=== PATIENT | female | born 1985 | race Caucasian/White ===

== ENCOUNTER 2020-12-20 14:14 | Emergency (ER) | payer BC ==
[2020-12-20] MEDS ORDERED: Ondansetron 4 MG/2 ML SDV IVPUSH ONE (15:06)
[2020-12-20] MEDS ORDERED: Morphine 4 MG/ML VIAL IVPUSH ONE (15:06)
[2020-12-20] MEDS ORDERED: Sodium Chloride 0.9% 1,000 ML IV ONE (15:06)
[2020-12-20] MEDS ORDERED: Ketorolac 30 MG/ML SDV IVPUSH ONE (15:06)
--- NOTE | 2020-12-20 15:15 | EDM.PDOC ---
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, lower 6" retained so that ostomy would not be needed, has chronic abd pain for which she takes hc/apap 7.5/[address] abd/pelvis here 08/30 that showed no obstruction had abd pain 10/28 and went to [facility], told that the colon "was twisted" has had similar pain x 3d now as she did 10/28, generalized cramping pain not controlled with hc/apap, usual gets relief of chronic pain for several hours but that was not the case when she took it at 8a 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, 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, worked every day this week altho left today (Wed) at 1p to go to clinic and then was sent here has been talking with [facility] physicians who request CT has promethazine at home for N, other nausea meds do not work, did not take oral promethazine today as it makes her sedated add only a waffle this AM last BM 2d ago PCP: Gia Rodriguez Mid-abdominal Pain Score (Numeric/FACES): 10 - Related Data Allergies Allergy/AdvReac Type Severity Reaction Status Date / Time latex Allergy Rash Verified 12/20/20 14:23 Home Meds: Home Meds Amitriptyline [Elavil] 25 mg PO BEDTIME 12/20/20 [History] Cetirizine [ZyrTEC] 20 mg PO BEDTIME 12/20/20 [History] DULoxetine [Cymbalta] 60 mg PO DAILY 12/20/20 [History] Hydrocodone/Acetaminophen [Hydrocodon-Acetaminoph 7.5-325] 1 tab BID 12/20/20 [History] Levonorgestrel/Ethin.estradiol [Falmina-28 Tablet] 1 each PO BEDTIME 12/20/20 [History] Promethazine [Phenergan] 25 mg PO Q6H PRN 12/20/20 [History] Past Medical History Gastrointestinal History: Reports: Bowel Obstruction Other Gastrointestinal History: hx abd strictures Genitourinary History: Reports: Acute Renal Failure Other [employer] E[employer]OMIST History: G0 Musculoskeletal History: Reports: Back Pain, Chronic, Fracture Other Musculoskeletal History: hx L 5th digit Neurological History: Reports: Concussion Psychiatric History: Reports: Anxiety, Panic Attack Hematologic History: Reports: Anemia, Blood Transfusion(s), Iron Deficiency Dermatologic History: Reports: Eczema - Infectious Disease History Infectious Disease History: Reports: Chicken Pox, Other (See Below) Other Infectious Disease History: hx Ecoli causing hemolytic uremic syndrome - Past Surgical History GI Surgical History: Reports: Appendectomy, Cholecystectomy, Colon, Colonoscopy, EGD, Lysis of Adhesions Other GI Surgeries/Procedures: colon resection. has neurostimulator implanted in back to help with abd pain Neurological Surgical History: Reports: Other (See Below) Other Neurological Surgeries/Procedures: has neurostimulator in back to help with abd pain Musculoskeletal Surgical History: Reports: None Social & Family History - Family History Family Medical History: No Pertinent Family History - Tobacco Use Tobacco Use Status *Q: Never Tobacco User - Caffeine Use Caffeine Use: Reports: Coffee - Recreational Drug Use Recreational Drug Use: No ED ROS GENERAL - Review of Systems Review Of Systems: See Below Constitutional: Reports: No Symptoms HEENT: Reports: No Symptoms Respiratory: Reports: No Symptoms Cardiovascular: Reports: No Symptoms Endocrine: Reports: No Symptoms GI/Abdominal: Reports: Abdominal Pain, Nausea : Reports: No Symptoms Musculoskeletal: Reports: No Symptoms Skin: Reports: No Symptoms Neurological: Reports: No Symptoms Psychiatric: Reports: No Symptoms Hematologic/Lymphatic: Reports: No Symptoms Immunologic: Reports: No Symptoms ED EXAM, GI/ABD - Physical Exam Exam: See Below Exam Limited By: No Limitations General Appearance: Alert, WD/WN, Moderate Distress Ears: Hearing Grossly Normal Nose: Normal Inspection Throat/Mouth: Normal Voice, No Airway Compromise Head: Atraumatic, Normocephalic Neck: Normal Inspection, Supple, Non-Tender, Full Range of Motion Respiratory/Chest: No Respiratory Distress, Lungs Clear, Normal Breath Sounds, No Accessory Muscle Use Cardiovascular: No Edema, No Gallop, No Murmur, Tachycardia, Other (inc'd HR, regular, quiet precordium) GI/Abdominal Exam: Other (no distention, BS present altho dec'd, 1-2+ tender throughout) Back Exam: Normal Inspection, Full Range of Motion. No: CVA Tenderness (R), CVA Tenderness (L) Extremities: Normal Range of Motion, Non-Tender, No Pedal Edema Neurological: Alert, Oriented, CN II-XII Intact, Normal Cognition, No Motor/Sensory Deficits Psychiatric: Normal Affect, Normal Mood Skin Exam: Warm, Dry, Intact, Normal Color, Other (dec'd turgor UEs without tenting) Lymphatic: No Adenopathy Course - Vital Signs Last Recorded V/S: Last Vital Signs Temp 36.7 C 12/20/20 14:19 Pulse 103 H 12/20/20 14:19 Resp 18 12/20/20 14:19 BP 123/99 H 12/20/20 14:19 Pulse Ox 97 12/20/20 14:19 - Orders/Labs/Meds Orders: Active Orders 24 hr Category Date Time Status UA W/MICROSCOPIC [URIN] Stat Lab 12/20/20 15:06 Ordered Labs: Laboratory Tests 12/20/20 12/20/20 12/20/20 Range/Units 15:25 15:25 15:25 WBC 6.9 (3.0-10.3) x10-3/uL RBC 4.46 (3.60-5.20) x10(6)uL Hgb 13.0 (11.4-15.5) g/dL Hct 38.5 (34.2-48.2) % MCV 86.3 (76.7-100.5) fL MCH 29.1 (23.9-33.9) pg MCHC 33.7 (31.9-34.8) g/dL RDW 13.8 (12.3-16.5) % Plt Count 216 (151-488) x10(3)uL MPV 8.6 (7.1-12.4) fL Neut % (Auto) 65.7 (30.8-76.2) % Lymph % (Auto) 25.9 (18.4-52.1) % [place] % (Auto) 7.6 (4.4-15.7) % Eos % (Auto) 0.3 L (0.6-8.1) % Baso % (Auto) 0.5 (0.2-1.5) % Neut # (Auto) 4.5 (1.5-6.3) x10-3/uL Lymph # (Auto) 1.8 (1.0-4.4) x10-3/uL [place] # (Auto) 0.5 (0.3-1.0) x10-3/uL Eos # (Auto) 0.0 (0.0-0.8) x10-3/uL Baso # (Auto) 0.0 (0.0-0.1) x10-3/uL Sodium 140 (135-145) mmol/L Potassium 4.0 (3.5-5.3) mmol/L Chloride 101 (100-110) mmol/L Carbon Dioxide 28 (21-32) mmol/L BUN 8 (7-18) mg/dL Creatinine 0.7 (0.55-1.02) mg/dL Est Cr Clr Drug Dosing 87.87 mL/min Estimated GFR (MDRD) > 60 (>60) BUN/Creatinine Ratio 11.4 (9-20) Glucose 102 (80-116) mg/dL Lactic Acid (0.4-2.0) mmol/L Calcium 8.9 (8.6-10.2) mg/dL Total Bilirubin 0.5 (0.1-1.3) mg/dL AST 16 (5-25) IU/L ALT 16 (12-36) U/L Alkaline Phosphatase 62 (56-112) IU/L C-Reactive Protein < 0.2 L (0.5-0.9) mg/dL Total Protein 7.5 (6.0-8.0) g/dL Albumin 4.0 (3.5-5.2) g/dL Globulin 3.5 g/dL Albumin/Globulin Ratio 1.1 Lipase 104 (73-393) U/L 12/20/20 Range/Units 15:25 WBC (3.0-10.3) x10-3/uL RBC (3.60-5.20) x10(6)uL Hgb (11.4-15.5) g/dL Hct (34.2-48.2) % MCV (76.7-100.5) fL MCH (23.9-33.9) pg MCHC (31.9-34.8) g/dL RDW (12.3-16.5) % Plt Count (151-488) x10(3)uL MPV (7.1-12.4) fL Neut % (Auto) (30.8-76.2) % Lymph % (Auto) (18.4-52.1) % [place] % (Auto) (4.4-15.7) % Eos % (Auto) (0.6-8.1) % Baso % (Auto) (0.2-1.5) % Neut # (Auto) (1.5-6.3) x10-3/uL Lymph # (Auto) (1.0-4.4) x10-3/uL [place] # (Auto) (0.3-1.0) x10-3/uL Eos # (Auto) (0.0-0.8) x10-3/uL Baso # (Auto) (0.0-0.1) x10-3/uL Sodium (135-145) mmol/L Potassium (3.5-5.3) mmol/L Chloride (100-110) mmol/L Carbon Dioxide (21-32) mmol/L BUN (7-18) mg/dL Creatinine (0.55-1.02) mg/dL Est Cr Clr Drug Dosing mL/min Estimated GFR (MDRD) (>60) BUN/Creatinine Ratio (9-20) Glucose (80-116) mg/dL Lactic Acid 0.6 (0.4-2.0) mmol/L Calcium (8.6-10.2) mg/dL Total Bilirubin (0.1-1.3) mg/dL AST (5-25) IU/L ALT (12-36) U/L Alkaline Phosphatase (56-112) IU/L C-Reactive Protein (0.5-0.9) mg/dL Total Protein (6.0-8.0) g/dL Albumin (3.5-5.2) g/dL Globulin g/dL Albumin/Globulin Ratio Lipase (73-393) U/L Meds: Medications Discontinued Medications Generic Name Dose Route Start Last Admin Trade Name Freq PRN Reason Stop Dose Admin Sodium Chloride 1,000 mls @ 999 mls/hr 12/20/20 15:06 12/20/20 15:32 Normal Saline IV 12/20/20 16:06 999 mls/hr .BOLUS ONE Administration Iopamidol 75 ml 12/20/20 15:39 12/20/20 16:01 Iopamidol 755 Mg/Ml 75 Ml Bottle IV 12/20/20 15:40 66 ml ASDIRECTED ONE Administration Ketorolac Tromethamine 30 mg 12/20/20 15:06 12/20/20 15:34 Ketorolac 30 Mg/Ml Sdv IVPUSH 12/20/20 15:07 30 mg ONETIME ONE Administration Morphine Sulfate 4 mg 12/20/20 15:06 12/20/20 15:35 Morphine 4 Mg/Ml Vial IVPUSH 12/20/20 15:07 4 mg ONETIME ONE Administration Ondansetron HCl 4 mg 12/20/20 15:06 12/20/20 15:32 Ondansetron 4 Mg/2 Ml Sdv IVPUSH 12/20/20 15:07 4 mg ONETIME ONE Administration Sodium Biphosphate/Sodium Phosphate 133 ml 12/20/20 16:33 12/20/20 17:29 Sodium Phosphate,Monobasic/Sodium Phosphate,Dibasic Enema 133 Ml Bottle RECTAL 12/20/20 16:34 133 ml ONETIME ONE Administration - Re-Assessments/Exams Free Text/Narrative Re-Assessment/Exam: 12/20/20 17:55 CT abd/pelvis with IV contrast with stool distending sigmoid colon and extending across anastamosis per Dr Prakash, no change c/w 08/30, no evidence of obstruction labs are neg CT images pushed to [facility] no immediate results after a Fleet's enema, which pt says can take a little while for her to be effective Departure - Departure Time of Disposition: 17:50 Disposition: Home, Self-Care 01 Condition: Good Clinical Impression: Constipation, Spasm of bowel, Colonic motility disorder - Discharge Information *PRESCRIPTION DRUG MONITORING PROGRAM REVIEWED*: Not Applicable *COPY OF PRESCRIPTION DRUG MONITORING REPORT IN PATIENT DEEPIKA: Not Applicable Instructions: Chronic Constipation, Diet for Irritable Bowel Syndrome Forms: ED Department Discharge Additional Instructions: Give yourself another enema at home this evening, if necessary. Drink a 10-ounce bottle of magnesium citrate in the morning, if necessary. Discuss your ongoing bowel management regimen with your PCP and [facility] physicians. For pain and cramping, take ibuprofen 200 mg 4 tabs 3 times a day as needed. Sepsis Event Note (ED) - Evaluation Sepsis Screening Result: No Definite Risk - Focused Exam Vital Signs: Vital Signs Temp Pulse Resp BP Pulse Ox 12/20/20 14:19 36.7 C 103 H 18 123/99 H 97 - My Orders Last 24 Hours: My Active Orders 12/20/20 15:06 UA W/MICROSCOPIC [URIN] Stat - Assessment/Plan Last 24 Hours: My Active Orders 12/20/20 15:06 UA W/MICROSCOPIC [URIN] Stat
[2020-12-20] MEDS ORDERED: Morphine 4 MG/ML VIAL ONE (15:32)
[2020-12-20] MEDS ORDERED: Iopamidol 755 Mg/ML 75 ML Bottle IV ONE (15:39)
[2020-12-20] MEDS ORDERED: Sodium Phosphate,Monobasic/Sodium Phosphate,Dibasic Enema 133 ML Bottle RECTAL ONE (16:33)
--- NOTE | 2020-12-20 16:51 | CT ---
INDICATION: Abdominal pain, question small bowel obstruction, resection of all colon except last [address] ABDOMEN AND PELVIS WITH CONTRAST: Spiral 3.75 mm axial sections were obtained through the abdomen and pelvis with 66 mL Isovue 370 at 1.4 mL per second 12/20/20 and compared with 09/05/20. Total exam DLP was 334.26 mGy-cm. The lower lung sheldon and pleural spaces visualized appeared normal. The heart appeared normal in size. No pericardial effusion was seen. The liver appeared normal. The gallbladder is absent with clips at the cystic duct compatible with cholecystectomy history. The adrenal glands, kidneys, spleen, and pancreas were unremarkable. No retroperitoneal mass was seen. Evidence of subtotal colectomy is noted with anastomosis at the level of the sigmoid colon or rectosigmoid. There is stool noted at the site of ileosigmoid anastomosis. Compared with the previous examination, the appearance if very similar with some air-fluid levels in minimally dilated small bowel, but no definitely mechanical obstructive process identified. There is gas extending from the area of the ileocolonic anastomosis into the rectum. The urinary bladder was unremarkable. Follicles are noted in the ovaries. No additional organomegaly, mass lesions, or free fluid collections were identified in the abdomen or pelvis. IMPRESSION: 1. Subtotal colectomy with anastomosis in the right lower quadrant which appears to be functioning, there being stool across that anastomosis and gas in the remaining more distal sigmoid colon and rectum. The appearance is similar to 09/05/20. 2. Post cholecystectomy. 3. Neural stimulator remains in place. 4. Urinary bladder remains somewhat distended in appearance of questionable significance. Report was called to Dr. Lambert at 1624 hours, 12/20/20. [facility]
== END 2020-12-20 18:01 | disposition home or self-care (01) ==
LOC: FB.ED 14:14
DX: K58.1 Irritable bowel syndrome with constipation (principal); K63.89 Other specified diseases of intestine; Z91.040 Latex allergy status; Z79.899 Other long term (current) drug therapy
CPT/HCPCS: 36415; 74177; 80053; 83605; 83690; 85025; 86140; 96374; 96375; 99283; 99284; J1885; J2270; J2405; J7030; Q9967